=== PATIENT | male | born 1950 | race Hispanic/Latino ===

== ENCOUNTER 2018-01-06 07:09 | Day surgery (SDC) | payer OTHER ==
[~2018-01-06] VITALS: Ht 162.6 cm; Wt 89.8 kg
[~2018-01-06 07:09] MED LIST: ESCITALOPRAM PO; LISI1TAB9 PO; METOPROLOL PO; NAPR-1023 PO; NITR0.4T50 SL; SIMV40TA59 PO; SODIUM CHLORIDE 0.9% 1000ML 1,000 ML IV ONE; TAMS0.4C32 PO
[2018-01-06 07:17] VITALS: BP 141/88
[2018-01-06] MEDS ORDERED: PROPOFOL 10 MG/ML 20ML VIAL IV ONE ×2 (08:32)
[2018-01-06 08:47] VITALS: BP 95/50
== END 2018-01-06 09:19 | disposition home or self-care (01) ==
LOC: ENDO 07:09 → DAH 07:09 → ENDO 09:19
PROVIDERS: ATTEND Internal Medicine Gastroenterology
DX: K29.50 Unspecified chronic gastritis without bleeding (principal); K21.0 Gastro-esophageal reflux disease with esophagitis; Z86.010 Personal history of colon polyps; I10 Essential (primary) hypertension; E78.5 Hyperlipidemia, unspecified; I25.10 Atherosclerotic heart disease of native coronary artery without angina pectoris; G47.33 Obstructive sleep apnea (adult) (pediatric); N40.0 Benign prostatic hyperplasia without lower urinary tract symptoms; M19.90 Unspecified osteoarthritis, unspecified site; F32.9 Major depressive disorder, single episode, unspecified; Z98.890 Other specified postprocedural states; Z82.49 Family history of ischemic heart disease and other diseases of the circulatory system; Z68.39 Body mass index [BMI] 39.0-39.9, adult; Z79.899 Other long term (current) drug therapy
CPT/HCPCS: 43239; 88305; 88312; 93005; A4606; J2704 ×2; J7030

== ENCOUNTER → 2019-01-02 | Outpatient (CLI) | payer OTHER ==
[~2019-01-02] MED LIST changes: -NAPR-1023 PO; -SODIUM CHLORIDE 0.9% 1000ML 1,000 ML IV ONE
== END | disposition home or self-care (01) ==
LOC: SLP 20:07
PROVIDERS: ATTEND Family Medicine
DX: G47.10 Hypersomnia, unspecified (principal)
CPT/HCPCS: 95810

== ENCOUNTER 2019-05-21 13:37 | Emergency (ER) | payer OTHER ==
[~2019-05-21 13:37] MED LIST changes: +LISI1TAB32 PO; -LISI1TAB9 PO
[2019-05-21] MEDS ORDERED: ONDANSETRON HCL 4 MG/2 ML VIAL ONE (14:55)
[2019-05-21] MEDS ORDERED: DICYCLOMINE HCL 10 MG/ML 2ML AMP IM ONE (14:56)
[2019-05-21] MEDS ORDERED: ACETAMINOPHEN EXTRA STRENGTH 500 MG TABLET ONE (14:56)
[2019-05-21] MEDS ORDERED: SIMETHICONE 80 MG TAB.CHEW ONE (14:56)
[2019-05-21] MEDS ORDERED: SODIUM CHLORIDE 0.9% 1000ML 1,000 ML IV ONE ×2 (14:57→16:03)
[2019-05-21 15:04] LABS: APPEARANCE,URINE Clear (CLEAR); BILIRUBIN,URINE Negative (NEGATIVE); COLOR,URINE Yellow (YELLOW); GLUCOSE, URINE (UA) Negative (NEGATIVE); KETONES,URINE Negative (NEGATIVE); LEUKOCYTE ESTERASE ,URINE Negative (NEGATIVE); NITRATE,URINE Negative (NEGATIVE); OCCULT BLOOD,URINE Negative (NEGATIVE); PROTEIN,URINE Trace mg/dL (NEGATIVE)
[2019-05-21 15:10] LABS: BASOPHILS % (AUTO) 0.5 % (0.0-5.0); EOSINOPHILS % (AUTO) 0.9 % (0.0-8.0); HEMATOCRIT 38.5 % (42-54); LYMPHOCYTES % (AUTO) 22.8 % (21.0-51.0); MEAN CORPUSCULAR HEMOGLOBIN 33.2 pg (27.0-33.0); MEAN CORPUSCULAR HGB CONC 35.8 g/dL (32.0-36.0); MEAN CORPUSCULAR VOLUME 92.8 fL (79-99); MONOCYTES % (AUTO) 21.6 % (3.0-13.0); NEUTROPHILS % (AUTO) 54.2 % (40.0-77.0); PLATELET COUNT (AUTO) 232 K/uL (130-400); RED BLOOD CELL COUNT(AUTO) 4.15 MIL/uL (4.50-6.20); RED CELL DISTRIBUTION WIDTH 12.9 % (11.0-15.5); WHITE BLOOD COUNT (AUTO) 5.4 K/uL (4.8-10.8)
[2019-05-21 15:14] LABS: BACTERIA,URINE Rare /HPF (None Seen); MUCUS,URINE Rare LPF (None Seen); RBC,URINE 0-1 /HPF (0-1); SQUAMOUS EPITHELIAL CELL,UR Rare /HPF (0-2)
[2019-05-21 15:18] LABS: CREATININE 0.9 mg/dL (0.5-1.5); POTASSIUM 3.2 mmol/L (3.5-5.1)
[2019-05-21 15:22] LABS: ALBUMIN 3.5 g/dL (3.5-5.0); BILIRUBIN,TOTAL 0.5 mg/dL (0.2-1.0); TOTAL PROTEIN, SERUM 7.1 g/dL (6.0-8.3)
[2019-05-21] MEDS ORDERED: POTASSIUM CHLORIDE 20 MEQ ERTAB PO ONE (16:50)
== END 2019-05-21 16:57 | disposition home or self-care (01) ==
LOC: EDH 13:37
DX: E87.6 Hypokalemia (principal); R19.7 Diarrhea, unspecified; R11.0 Nausea; R50.9 Fever, unspecified; I10 Essential (primary) hypertension; E11.9 Type 2 diabetes mellitus without complications
CPT/HCPCS: 36415; 80053; 81001; 82150; 83690; 84484; 85025; 93005; 96361; 96372; 96374; 99285; J0500; J2405; J7030 ×2

== ENCOUNTER → 2021-04-17 | Outpatient (CLI) | payer OTHER | END | disposition home or self-care (01) | LOC: SHCH 16:00 | PROVIDERS: ATTEND Internal Medicine Cardiovascular Disease | DX: R07.9 Chest pain, unspecified (principal) | CPT/HCPCS: 93306; 93356 ==

== ENCOUNTER → 2024-06-30 | Outpatient (CLI) | payer OTHER ==
[~2024-06-30] MED LIST changes: -LISI1TAB32 PO; +LISI1TAB49 PO
== END | disposition home or self-care (01) ==
LOC: SHCH 10:00
PROVIDERS: ATTEND Internal Medicine
DX: I25.10 Atherosclerotic heart disease of native coronary artery without angina pectoris (principal); R07.9 Chest pain, unspecified
CPT/HCPCS: 93306

== ENCOUNTER → 2024-08-28 | Outpatient (CLI) | payer OTHER ==
[2024-08-28] MEDS: REGADENOSON 0.4 MG/5 ML PF SYG IVP ONE (15:47)
== END | disposition home or self-care (01) ==
LOC: SHCH 07-21 08:01
PROVIDERS: ATTEND Internal Medicine
DX: R07.9 Chest pain, unspecified (principal); I25.10 Atherosclerotic heart disease of native coronary artery without angina pectoris; I10 Essential (primary) hypertension; R06.00 Dyspnea, unspecified
CPT/HCPCS: 78452; 93017; J2785; A9500 ×2

== ENCOUNTER 2024-11-17 12:00 | Day surgery (SDC) | payer OTHER ==
[2024-11-15 10:26] LABS: BASOPHILS # (AUTO) 0.03 K/uL (0.00-0.20); BASOPHILS % (AUTO) 0.5 % (0.0-5.0); EOSINOPHILS # (AUTO) 0.03 K/uL (0.00-0.70); EOSINOPHILS % (AUTO) 0.5 % (0.0-8.0); IMMATURE GRANULOCYTE ABSOLUTE 0.01 K/uL (0-1); LYMPHOCYTES # (AUTO) 1.3 K/uL (1.0-4.8); LYMPHOCYTES % (AUTO) 22.2 % (21.0-51.0); MEAN CORPUSCULAR HEMOGLOBIN 31.7 pg (27.0-33.0); MEAN CORPUSCULAR HGB CONC 35.7 g/dL (32.0-36.0); MEAN CORPUSCULAR VOLUME 88.8 fL (79-99); MONOCYTES # (AUTO) 0.4 K/uL (0.1-1.0); MONOCYTES % (AUTO) 7.2 % (3.0-13.0); NEUTROPHILS % (AUTO) 69.4 % (40.0-77.0); PLATELET COUNT (AUTO) 238 K/uL (130-400); RED BLOOD CELL COUNT(AUTO) 4.73 MIL/uL (4.50-6.20); WHITE BLOOD COUNT (AUTO) 5.7 K/uL (4.8-10.8)
[2024-11-15 10:35] LABS: PROTHROMBIN TIME 11.2 SEC (9.6-11.6)
[2024-11-15 10:37] LABS: PARTIAL THROMBOPLASTIN TIME 30.5 SEC (26.3-35.5)
[2024-11-15 10:41] LABS: CREATININE 0.8 mg/dL (0.5-1.3); POTASSIUM 4.2 mmol/L (3.5-5.1)
[2024-11-15 10:52] LABS: B-TYPE NATRIURETIC PEPTIDE 6 pg/mL (0-100)
--- NOTE | 2024-11-15 10:57 | EKG ---
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
[2024-11-15 11:08] VITALS: BP 127/80; PULSE 72; RESP 14; TEMP 98.4
--- NOTE | 2024-11-15 11:46 | HMCIMG ---
CHEST 1VW HISTORY: Preop COMPARISON: 07/06/2016 FINDINGS: A frontal projection of the chest was obtained. No acute pulmonary infiltrates is seen. The heart is borderline enlarged. Degenerative changes are seen. No evidence of aortic calcification is seen. IMPRESSION: 1. No acute pulmonary infiltrate is seen.
[2024-11-17] VITALS (7 sets, daily range): BP systolic 131–149; BP diastolic 74–86; PULSE 71–87; RESP 17–20; TEMP 97.9–98.2
[~2024-11-17] VITALS: Ht 162.6 cm; Wt 94.8 kg
[~2024-11-17 12:00] MED LIST changes: +ARIP5TAB51 PO; +ESCI20TA38 PO; -ESCITALOPRAM PO; +ISOS30TA92 PO; +LEVO5TAB13 PO; +METO100T14 PO; -METOPROLOL PO; +NAPR-1194 PO; +ZOLP10TA2 PO
[2024-11-17] MEDS: 0.9%NACL 1000ML 1,000 ML IV SCH (12:51)
[2024-11-17] MEDS ORDERED: IOHEXOL 350 MG/ML 100ML INFUS..BTL IV ONE (14:33)
[2024-11-17] MEDS ORDERED: LIDOCAINE HCL 400MG/20ML VIAL ONE (14:33)
[2024-11-17] MEDS ORDERED: HEParin-NS 1,000 UNIT/500 ML 1,000 ML IV ONE (14:33)
[2024-11-17] MEDS ORDERED: NITROGLYCERIN 50MG VIAL ONE (14:34)
[2024-11-17] MEDS ORDERED: FENTanyl CITRate PF 50 MCG/1 ML 2ML VIAL ONE (15:00)
[2024-11-17] MEDS ORDERED: MIDAZOLAM HCL 1 MG/ML 2ML VIAL ONE (15:00)
[2024-11-17] MEDS ORDERED: HEParin 10,000 UNIT/10ML (1,000 UNIT/ML) VIAL ONE (15:03)
[2024-11-17] MEDS ORDERED: VERAPAMIL HCL 2.5 MG/ML VIAL ONE (15:03)
--- NOTE | 2024-11-17 16:10 | PRN ---
Cath Procedure Report CATH PROCEDURE REPORT CARDIAC CATHETERIZATION REPORT Date of Service: Nov 17, 2024 PROCEDURE: Left heart catheterization with selective right and left coronary angiography HOUSEHOLD COOK: Sudhakar Ybarra INDICATION: CCS III angina despite medical therapy DESCRIPTION OF PROCEDURE: Patient brought back to cardiac cath lab radiology technologist suite in fasting state. Time-out was performed. Right radial artery was anesthetized with 1% lidocaine with 1 mL. Conscious sedation initiated and patient was monitored at all times directly by physician supervision as well as independent qualify cardiac cath lab radiology technologist RN and there no complications secondary to anesthesia. Right radial artery was accessed on 1st attempt with placement of six Thai hydrophilic short sheath with vaso dilatory cocktail of 2.5 mg of verapamil and 200 mcg of nitroglycerin administered via the sheath side port. Over an 035 J-wire, a six Thai JR4 catheter was advanced into the ascending aorta, used to cross the aortic valve for LVEDP measurement and pullback across the aortic valve. Unable to selectively cannulate the right coronary artery with a JR4, therefore this was exchanged over the wire for a six Thai JL 3.5 catheter which was used to selectively e ngage left coronary artery and multiple angiographic views were taken. The catheter was then removed and exchanged again for the six Thai JR4 catheter, unable to selectively engage right coronary artery therefore exchanged for a six Thai AR1 catheter. This was used to selectively engage right coronary artery and multiple angiographic views were taken. All catheters wires were then removed and hemostasis achieved at the right radial artery with use of Vasc band. Patient tolerated the procedure well without immediate complications. FINDINGS: LEFT MAIN: ANGIOGRAPHICALLY FREE OF DISEASE, BIFURCATES INTO LAD AND LEFT CIRCUMFLEX LEFT ANTERIOR DESCENDING: PROXIMAL 20% STENOSIS. LAWN SEGMENT IN MID LAD WITH 30% STENOSIS. DISTAL LAD WITH TWO SERIAL STENOSIS MEASURING 70%, FOCAL, AT LEVEL OF KINK WITH MYOCARDIAL BRIDGING. LEFT CIRCUMFLEX: CODOMINANT CORONARY SYSTEM. LARGE CALIBER OM1 BRANCH WHICH BIFURCATES DISTALLY. NO ANGIOGRAPHIC DISEASE WITH THE LEFT CIRCUMFLEX, LPDA OR OM SYSTEMS. RIGHT CORONARY ARTERY: PROXIMAL 30-40% STENOSIS. NO DAMPENING ON ENGAGEMENT WITH THE CATHETER. THIS NARROWING ACTUALLY LOOKS ANGIOGRAPHICALLY IMPROVED COMPARED TO HIS PRIOR CORONARY ANGIOGRAPHY PERFORMED IN 2016. RPDA IS SMALL WITH LUMINAL IRREGULARITIES. HEMODYNAMICS: OPENING AORTIC PRESSURE OF 944/84 WITH A MEAN OF 69 MM OF MERCURY LEFT VENTRICLE 113/110 LVEDP 6/5 CONTRAST: 105 ML SUMMARY: 1. Nonobstructive proximal coronary artery disease 2. 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 SUDHAKAR YBARRA DO Nov 17, 2024 16:10
[2024-11-17] MEDS ORDERED: 0.9%NACL 1000ML 1,000 ML IV SCH (16:30)
--- NOTE | 2024-11-17 16:57 | NUR ---
Dr Ybarra here to see Patient. Spoke with him and Family at length. All questions answered.
[2024-11-17] MEDS ORDERED: ASPI-1005 PO (16:59)
--- NOTE | 2024-11-17 18:07 | NUR ---
VASC band removed per protocol. No evidence of bleeding, bruising or hematoma. Area cleansed with Chloroprep, dressed with 2x2 and opsite. Light [place] apllied. Voiced understanding to right arm precautions.
--- NOTE | 2024-11-17 18:32 | NUR ---
Full and complete discharge instructions given to Patient and Family both verbally and in writing. Explained Cardiac Catheterization procedure precautions and follow up. All questions answered. PIV removed with catheter tip intact. Wrist site and clean, dry without any sign of bleeding, bruising or hematoma. Home with Family W/C to POV.
== END 2024-11-17 18:33 | disposition home or self-care (01) ==
LOC: DAH 12:00
PROVIDERS: ATTEND Internal Medicine
DX: I25.118 Atherosclerotic heart disease of native coronary artery with other forms of angina pectoris (principal); I10 Essential (primary) hypertension; E78.5 Hyperlipidemia, unspecified; E66.9 Obesity, unspecified; Z68.34 Body mass index [BMI] 34.0-34.9, adult; I42.9 Cardiomyopathy, unspecified; Z79.01 Long term (current) use of anticoagulants; Z79.899 Other long term (current) drug therapy
CPT/HCPCS: 80048; 83880; 85025; 85610; 85730; 36415; 71045; 93005; 93458; C1894; A4649; J3010; J3490 ×3; J7030; J1644 ×2; J2250; Q9967; A4215; A4222; A4221; A4663; A4216; A4606; Q9965 ×2; A4223 ×3; 99156; 99157; C1769